=== PATIENT | female | born 1955 | race African-American/Black ===

== ENCOUNTER 2020-04-25 11:34 | Inpatient (IN) ==
[2020-04-25] MEDS ORDERED: 0.9 % Sodium Chloride 1,000 ML IVC ONE (11:43)
[2020-04-25] MEDS ORDERED: Ketorolac 15 MG/ML VIAL IVP ONE (11:43)
[2020-04-25] MEDS ORDERED: Ondansetron 4 MG/2 ML VIAL IVP ONE (11:43)
[2020-04-25] MEDS ORDERED: *HR* OxyCODONE/APAP 5/325 TABLET PO ONE (11:44)
[2020-04-25 12:47] LABS: Hemoglobin 9.8 g/dL (11.5-15.4); Red Cell Distribution Width 17.3 % (11.5-14.5); White Blood Count 7.4 K/mcL (4.3-11.1)
[2020-04-25 12:49] LABS: Basophils % 0.4 %; Eosinophils # 0.1 K/mcL (0.0-0.6); Eosinophils % 1.7 %; Hematocrit 33.8 % (35.3-44.9); Immature Granulocytes % 0.8 % (0-4); Lymphocytes # 2.2 K/mcL (0.6-4.6); Lymphocytes % 29.8 %; Mean Corpuscular Hemoglobin 19.6 pg (28.0-33.3); Mean Corpuscular Volume 67.5 fL (83.0-100.0); Mean Platelet Volume 9.8 fL (9.4-12.4); Monocytes # 0.4 K/mcL (0.0-1.3); Monocytes % 5.9 %; Platelet Count 264 K/mcL (140-400); Red Blood Count 5.01 M/mcL (3.82-4.97); Segmented Neutrophils % 61.4 %
[2020-04-25 12:53] LABS: Neutrophils # 4.5 K/mcL (1.6-8.9)
[2020-04-25 13:08] LABS: Alanine Aminotransferase 13 Units/L (7-52); Albumin 3.8 g/dL (3.5-5.7); Albumin/Globulin Ratio 0.9 (1.1-2.2); Alkaline Phosphatase 112 Units/L (34-104); Aspartate Amino Transferase 16 Units/L (13-39); BUN/Creatinine Ratio 9 (6-26); Bilirubin,Total 0.4 mg/dL (0.3-1.0); Blood Urea Nitrogen 7 mg/dL (8-23); Carbon Dioxide 27 mEq/L (23-29); Chloride 101 mEq/L (98-107); Globulin 4.4 g/dL (2.4-3.5); Glucose 148 mg/dL (70-105); Osmolality,Calculated 281 (280-300); Potassium 3.4 mEq/L (3.5-5.1); Sodium 135 mEq/L (136-145); Total Protein 8.2 g/dL (6.4-8.9); Troponin I < 0.03 ng/mL (< 0.04); eGFR For African Americans > 60 (> 60); eGFR For Non-African Americans > 60 (> 60)
[2020-04-25] MEDS ORDERED: Furosemide 40 MG/4 ML VIAL IVP ONE (13:17)
[2020-04-25] MEDS ORDERED: Naloxone 0.4 MG/ML INJ IVP PRN (13:35)
[2020-04-25 13:41] LABS: Anisocytosis 1+ (Not Present); Large Platelets Present (Not Present); Platelet Estimate Normal (Normal)
[2020-04-25 13:42] LABS: Microcytosis Present (Not Present)
[2020-04-25] MEDS ORDERED: Perflutren Lipid Microsphere 1.3 ML in 0.9 % Sodium Chloride 8.7 ML IVP PRN (14:31)
[2020-04-25] MEDS ORDERED: *HR* Dextrose 50 % in Water (Vial) 50 ML VIAL IVP PRN (14:32)
[2020-04-25] MEDS ORDERED: D5% in Water 1,000 ML IVC PRN (14:32)
[2020-04-25] MEDS ORDERED: Dextrose Gel 15 GM/37.5 ML TUBE PO PRN ×2 (14:32)
[2020-04-25] MEDS: Insulin LISPRO 300 UNITS/3 ML VIAL SQ SCH ×2 (16:56→23:29)
[2020-04-25] MEDS ORDERED: Ondansetron 4 MG/2 ML VIAL IVP PRN (18:59)
[2020-04-25] MEDS ORDERED: *HR* HYDROmorphone 2 MG TABLET PO ONE (19:12)
[2020-04-25] MEDS ORDERED: tiZANidine 4 MG TABLET PO PRN (21:30)
[2020-04-25] MEDS ORDERED: Fluticasone Propionate Nasal 50 MCG/SPRAY BOTTLE NS PRN (21:30)
[2020-04-25] MEDS ORDERED: *HR* OxyCODONE/APAP 5/325 TABLET PO PRN (21:35)
[2020-04-25] MEDS: BuPROPion SR (12 HR) 150 MG TABLET PO SCH (21:59)
[2020-04-25] MEDS ORDERED: SUMAtriptan succinate 25 MG TABLET PO ONE (23:52)
[2020-04-25] MEDS ORDERED: Prochlorperazine 10 MG/2 ML VIAL IVP PRN (23:52)
[2020-04-26 01:00] LABS: Basophils % 0.3 %; Red Cell Distribution Width 17.2 % (11.5-14.5)
[2020-04-26 01:01] LABS: Eosinophils # 0.1 K/mcL (0.0-0.6); Eosinophils % 1.5 %; Hematocrit 32.3 % (35.3-44.9); Hemoglobin 9.5 g/dL (11.5-15.4); Lymphocytes % 28.6 %; Mean Corpuscular HGB Conc 29.4 g/dL (31.6-35.5); Mean Corpuscular Hemoglobin 19.7 pg (28.0-33.3); Mean Corpuscular Volume 66.9 fL (83.0-100.0); Mean Platelet Volume 9.7 fL (9.4-12.4); Monocytes # 0.5 K/mcL (0.0-1.3); Monocytes % 6.7 %; Neutrophils # 4.4 K/mcL (1.6-8.9); Platelet Count 259 K/mcL (140-400); Red Blood Count 4.83 M/mcL (3.82-4.97); Segmented Neutrophils % 61.9 %; White Blood Count 7.1 K/mcL (4.3-11.1)
[2020-04-26 01:14] LABS: BUN/Creatinine Ratio 9 (6-26); Blood Urea Nitrogen 7 mg/dL (8-23); Calcium 8.5 mg/dL (8.6-10.3); Carbon Dioxide 23 mEq/L (23-29); Chloride 104 mEq/L (98-107); Glucose 172 mg/dL (70-105); Magnesium 1.8 mg/dL (1.6-2.6); Osmolality,Calculated 286 (280-300); Phosphorous 2.9 mg/dL (2.7-4.5); Potassium 3.6 mEq/L (3.5-5.1); Sodium 137 mEq/L (136-145); eGFR For African Americans > 60 (> 60); eGFR For Non-African Americans > 60 (> 60)
[2020-04-26 02:44] LABS: Platelet Estimate Normal (Normal)
[2020-04-26] MEDS: *HR* Enoxaparin 40 MG/0.4 ML SYRINGE SQ SCH (05:43)
[2020-04-26] MEDS ORDERED: Furosemide 40 MG/4 ML VIAL IVP SCH (09:00)
[2020-04-26] MEDS: BuPROPion SR (12 HR) 150 MG TABLET PO SCH ×2 (09:31→21:20)
[2020-04-26] MEDS: Insulin LISPRO 300 UNITS/3 ML VIAL SQ SCH ×4 (09:31→21:20)
[2020-04-26] MEDS ORDERED: SUMAtriptan succinate 50 MG TABLET PO ONE (16:27)
[2020-04-26] MEDS: Furosemide 20 MG/2 ML VIAL IVP SCH (21:20)
[2020-04-26] MEDS: SUMAtriptan succinate 50 MG TABLET PO PRN (21:49)
[2020-04-26] MEDS: Lactobacillus 1 EACH CAP.SPRINK PO SCH (23:47)
[2020-04-27 03:24] LABS: Basophils % 0.4 %; Eosinophils # 0.1 K/mcL (0.0-0.6); Eosinophils % 1.8 %; Hematocrit 33.9 % (35.3-44.9); Hemoglobin 9.9 g/dL (11.5-15.4); Immature Granulocytes % 0.8 % (0-4); Mean Corpuscular HGB Conc 29.2 g/dL (31.6-35.5); Mean Corpuscular Hemoglobin 19.5 pg (28.0-33.3); Mean Corpuscular Volume 66.7 fL (83.0-100.0); Mean Platelet Volume 9.7 fL (9.4-12.4); Monocytes # 0.6 K/mcL (0.0-1.3); Monocytes % 7.2 %; Platelet Count 307 K/mcL (140-400); Red Blood Count 5.08 M/mcL (3.82-4.97); Red Cell Distribution Width 17.6 % (11.5-14.5); Segmented Neutrophils % 51.8 %; White Blood Count 7.8 K/mcL (4.3-11.1)
[2020-04-27 03:43] LABS: BUN/Creatinine Ratio 14 (6-26); Blood Urea Nitrogen 11 mg/dL (8-23); Calcium 9.4 mg/dL (8.6-10.3); Carbon Dioxide 25 mEq/L (23-29); Chloride 101 mEq/L (98-107); Glucose 173 mg/dL (70-105); Osmolality,Calculated 288 (280-300); Potassium 3.6 mEq/L (3.5-5.1); Sodium 137 mEq/L (136-145); eGFR For African Americans > 60 (> 60); eGFR For Non-African Americans > 60 (> 60)
[2020-04-27 03:57] LABS: Anisocytosis 1+ (Not Present); Microcytosis Present (Not Present); Platelet Estimate Normal (Normal)
[2020-04-27] MEDS: SUMAtriptan succinate 50 MG TABLET PO PRN ×3 (03:58→23:42)
[2020-04-27] MEDS: *HR* Enoxaparin 40 MG/0.4 ML SYRINGE SQ SCH (05:19)
[2020-04-27] MEDS: BuPROPion SR (12 HR) 150 MG TABLET PO SCH ×2 (08:28→19:45)
[2020-04-27] MEDS: Lactobacillus 1 EACH CAP.SPRINK PO SCH ×2 (08:28→19:44)
[2020-04-27] MEDS: Furosemide 20 MG/2 ML VIAL IVP SCH ×2 (08:29→19:45)
[2020-04-27] MEDS: Insulin LISPRO 300 UNITS/3 ML VIAL SQ SCH ×4 (08:34→20:39)
[2020-04-27] MEDS: Ondansetron ODT 4 MG TAB.RAPDIS SL PRN ×2 (14:12→23:42)
[2020-04-28 03:18] LABS: Hemoglobin 9.8 g/dL (11.5-15.4); Red Cell Distribution Width 17.4 % (11.5-14.5)
[2020-04-28 03:19] LABS: Basophils % 0.3 %; Eosinophils # 0.2 K/mcL (0.0-0.6); Eosinophils % 2.1 %; Immature Granulocytes % 0.9 % (0-4); Lymphocytes % 40.8 %; Mean Corpuscular HGB Conc 28.8 g/dL (31.6-35.5); Mean Corpuscular Hemoglobin 19.4 pg (28.0-33.3); Mean Corpuscular Volume 67.2 fL (83.0-100.0); Mean Platelet Volume 9.7 fL (9.4-12.4); Monocytes # 0.5 K/mcL (0.0-1.3); Monocytes % 6.1 %; Platelet Count 326 K/mcL (140-400); Red Blood Count 5.06 M/mcL (3.82-4.97); Segmented Neutrophils % 49.8 %; White Blood Count 7.7 K/mcL (4.3-11.1)
[2020-04-28 03:26] LABS: Lymphocytes # 3.1 K/mcL (0.6-4.6); Neutrophils # 3.8 K/mcL (1.6-8.9)
[2020-04-28 03:32] LABS: BUN/Creatinine Ratio 17 (6-26); Blood Urea Nitrogen 15 mg/dL (8-23); Calcium 9.3 mg/dL (8.6-10.3); Carbon Dioxide 27 mEq/L (23-29); Chloride 100 mEq/L (98-107); Glucose 200 mg/dL (70-105); Osmolality,Calculated 292 (280-300); Potassium 3.6 mEq/L (3.5-5.1); Sodium 138 mEq/L (136-145); eGFR For African Americans > 60 (> 60); eGFR For Non-African Americans > 60 (> 60)
[2020-04-28 04:33] LABS: Anisocytosis 1+ (Not Present); Microcytosis Present (Not Present); Platelet Estimate Normal (Normal)
[2020-04-28] MEDS: *HR* Enoxaparin 40 MG/0.4 ML SYRINGE SQ SCH (04:53)
[2020-04-28] MEDS: SUMAtriptan succinate 50 MG TABLET PO PRN ×2 (05:01→16:12)
[2020-04-28] MEDS: Furosemide 20 MG/2 ML VIAL IVP SCH ×2 (10:44→20:14)
[2020-04-28] MEDS: Lactobacillus 1 EACH CAP.SPRINK PO SCH ×2 (10:45→20:14)
[2020-04-28] MEDS: BuPROPion SR (12 HR) 150 MG TABLET PO SCH ×2 (10:45→20:14)
[2020-04-28] MEDS: Insulin LISPRO 300 UNITS/3 ML VIAL SQ SCH ×4 (10:47→20:15)
[2020-04-28] MEDS: Ondansetron ODT 4 MG TAB.RAPDIS SL PRN ×2 (15:41→23:54)
[2020-04-28] MEDS: Benzonatate 100 MG CAPSULE PO PRN (16:12)
[2020-04-29] MEDS: Benzonatate 100 MG CAPSULE PO PRN (02:29)
[2020-04-29] MEDS: SUMAtriptan succinate 50 MG TABLET PO PRN (02:29)
[2020-04-29] MEDS: *HR* Enoxaparin 40 MG/0.4 ML SYRINGE SQ SCH (05:34)
[2020-04-29 07:43] VITALS: BP 130/84
[2020-04-29 09:48] LABS: Monocytes % 6.9 %
[2020-04-29 09:49] LABS: Basophils % 0.2 %; Eosinophils # 0.2 K/mcL (0.0-0.6); Hematocrit 36.8 % (35.3-44.9); Hemoglobin 10.3 g/dL (11.5-15.4); Immature Granulocytes % 1.1 % (0-4); Immature Platelets 6.1 % (1.1-6.1); Lymphocytes # 3.7 K/mcL (0.6-4.6); Lymphocytes % 43.1 %; Mean Corpuscular Hemoglobin 18.8 pg (28.0-33.3); Mean Platelet Volume 10.2 fL (9.4-12.4); Monocytes # 0.6 K/mcL (0.0-1.3); Platelet Count 349 K/mcL (140-400); Red Blood Count 5.49 M/mcL (3.82-4.97); Red Cell Distribution Width 17.7 % (11.5-14.5); Segmented Neutrophils % 46.7 %; White Blood Count 8.5 K/mcL (4.3-11.1)
[2020-04-29 10:09] LABS: BUN/Creatinine Ratio 17 (6-26); Blood Urea Nitrogen 17 mg/dL (8-23); Calcium 9.5 mg/dL (8.6-10.3); Carbon Dioxide 31 mEq/L (23-29); Chloride 98 mEq/L (98-107); Glucose 294 mg/dL (70-105); Osmolality,Calculated 294 (280-300); Potassium 3.6 mEq/L (3.5-5.1); Sodium 136 mEq/L (136-145); eGFR For African Americans > 60 (> 60); eGFR For Non-African Americans 54 (> 60)
[2020-04-29] MEDS: Furosemide 20 MG/2 ML VIAL IVP SCH (10:17)
[2020-04-29] MEDS: BuPROPion SR (12 HR) 150 MG TABLET PO SCH (10:18)
[2020-04-29] MEDS: Lactobacillus 1 EACH CAP.SPRINK PO SCH (10:18)
[2020-04-29] MEDS: Ondansetron ODT 4 MG TAB.RAPDIS SL PRN (10:18)
[2020-04-29 10:29] LABS: Anisocytosis 1+ (Not Present)
[2020-04-29 10:30] LABS: Hypochromasia Present (Not Present); Microcytosis Present (Not Present); Platelet Estimate Normal (Normal)
[2020-04-29] MEDS: Insulin LISPRO 300 UNITS/3 ML VIAL SQ SCH (10:39)
== END 2020-04-29 14:00 | disposition home or self-care (01) | DRG 291 ==
LOC: EMEROOARM 11:34 → 2NENU 11:34 → SUATTDRO 13:35 → 2NENU 14:44
PROVIDERS: ADMIT Student in an Organized Health Care Education/Training Program; ATTEND Internal Medicine